=== PATIENT | male | born 1995 | race Caucasian/White ===

== ENCOUNTER 2017-06-05 21:59 | Emergency (ER) | payer MEDICAID ==
--- NOTE | 2017-06-06 00:30 | ED Physician Documentation ---
PD HPI MALE - Stated complaint Stated Complaint: MALE - Chief complaint Chief Complaint: General - History obtained from History obtained from: Patient - History of Present Illness Timing - onset: Today (this evening) Timing - duration: Hours Timing - details: Abrupt onset, Waxing and waning Pain level now: 9 Associated symptoms: Testiclar pain, Scrotal swelling. No: Dysuria, Urinary frequency, Hematuria, Discharge Similar symptoms before: Diagnosis (hydrocele) - Additional information Additional information: c/o episodic left testicular pain since February 2017. he was evaluated for this problem in this ED at that time, US showed hydrocele, but he was also treated with antibiotics to cover possible epidydimitis. He says he has episodes of left testicular pain since that time but tonight it became more severe than previous episodes. He has not had f/u for this problem, although he has an appointment with PMD (on [facility]) in early June. Review of Systems Constitutional: denies: Fever, Chills, Sweats GI: denies: Abdominal Pain : reports: Testicular pain. denies: Dysuria, Frequency, Discharge PD PAST MEDICAL HISTORY - Past Medical History Past Medical History: Yes GI: None : Other (hydrocele) - Past Surgical History Past Surgical History: No - Present Medications Home Medications: Ambulatory Orders Medication Instructions Recorded Confirmed oxyCODONE/ACET 5/325 [Percocet 5 1 - 2 each PO Q6H PRN #15 tablet 06/06/ mg/325 mg] - Allergies Allergies/Adverse Reactions: Allergies Allergy/AdvReac Type Severity Reaction Status Date / Time No Known Drug Allergies Allergy Verified 06/05/17 22:05 - Living Situation Living Arrangement: reports: At home - Social History Does the pt smoke?: Yes Smoking Status: Current every day smoker Does the pt drink ETOH?: No - Immunizations Immunizations are current?: Yes - POLST Patient has POLST: No PD ED PE NORMAL - Vitals Vital signs reviewed: Yes - General General: Alert and oriented X 3, Well developed/nourished, Other (appears uncomfortable) - Abdomen Abdomen: Soft, Non tender - Back Back: No CVA TTP PD ED PE EXPANDED - Male Male : Testes descended watson, Normal lie/cremastaric, Tenderness (mild left testicular tenderness, but he is most tender in scrotum that is above (cranial to) the left testicle without being adjacent; there is also mild focal swelling of this area) Results - Vitals Vitals: Vital Signs - 24 hr 06/05/17 06/06/17 22:03 03:25 Temperature 36.6 C 37.2 C Heart Rate 88 65 Respiratory 18 20 Rate Blood Pressure 120/62 111/69 O2 Saturation 100 97 Oxygen O2 Source Room air - Rads (name of study) testicular US Radiology: Prelim report reviewed, See rad report PD MEDICAL DECISION MAKING - ED course Complexity details: reviewed old records, reviewed results, re-evaluated patient , considered differential, d/w patient ED course: US reveals bilateral hydrocele (small) and small left varicocele. The majority of his swelling and tenderness is in an area that would correlate with the location of the left varicocele. I do not suspect epidydimitis at this time and thus no antibiotics given nor prescribed. Departure - Departure Disposition: 01 Home, Self Care Clinical Impression: Varicocele present on ultrasound of scrotum, Hydrocele Condition: Good Instructions: ED Hydrocele Type Not Specified, ED Varicocele Prescriptions: oxyCODONE/ACET 5/325 [Percocet 5 mg/325 mg] 1 - 2 each PO Q6H PRN #15 tablet PRN Reason: Pain Comments: Follow up with your doctor as scheduled. Discharge Date/Time: 06/06/17 03:53
[2017-06-06] MEDS ORDERED: oxyCOD/ACETAMIN 5 MG/325 MG TABLET PO STA (01:05)
--- NOTE | 2017-06-06 02:17 | Ultrasound Preliminary Report ---
Exam: US TESTICLE W/DOPPLER IMPRESSION: 1. Testicles appear normal. 2. Small hydroceles. 3. Small left varicocele. [facility] SITE ID: [id number]
--- NOTE | 2017-06-06 02:20 | Ultrasound Report ---
EXAM: SCROTAL ULTRASOUND EXAM DATE: 06/06/2017 02:00 AM. CLINICAL HISTORY: Left testicular pain. COMPARISON: 03/08/2017. TECHNIQUE: Real-time scanning was performed with static images obtained. Both color-flow and Doppler spectral analysis were utilized. FINDINGS: Right: Testis: 4.2 x 2.7 x 3.3 cm. Normal size and echotexture. No mass, calcification, or abnormal blood fl ow. Epididymis: Normal size and echotexture. No solid-appearing mass or abnormal blood flow. Hydrocele: Small. Varicocele: None. Left: Testis: 4.1 x 2.3 x 2.7 cm. Normal size and echotexture. No mass, calcification, or abnormal blood fl ow. Epididymis: Normal size and echotexture. No solid-appearing mass or abnormal blood flow. Hydrocele: Small. Varicocele: Yes. Other: None. IMPRESSION: 1. Testicles appear normal. 2. Small hydroceles. 3. Small left varicocele. [facility] Referring Provider Line: [phone] SITE ID: [id number]
[2017-06-06 03:25] VITALS: BP 111/69
[2017-06-06] MEDS ORDERED: oxyCODONE 5 MG TABLET PO STA (03:46)
[2017-06-06] MEDS ORDERED: IBUPROFEN 600 MG TABLET PO STA (03:46)
== END 2017-06-06 03:53 | disposition home or self-care (01) ==
LOC: ED 21:59
DX: I86.1 Scrotal varices (principal); N43.3 Hydrocele, unspecified; F17.200 Nicotine dependence, unspecified, uncomplicated
CPT/HCPCS: 76870; 93975; 99283; A9270

== ENCOUNTER 2017-06-13 01:52 | Emergency (ER) | payer MEDICAID ==
[2017-06-13] MEDS ORDERED: KETOROLAC 60 MG/2 ML VIAL IM STA (01:58)
--- NOTE | 2017-06-13 02:27 | ED Physician Documentation ---
PD HPI MALE - Stated complaint Stated Complaint: MALE - Chief complaint Chief Complaint: Abd Pain - History obtained from History obtained from: Patient, Family - History of Present Illness Timing - onset: How many weeks ago (1) Timing - details: Gradual onset, Still present Associated symptoms: Testiclar pain, Scrotal swelling PD HPI MALE CONTRIB FACTORS: Sexually active Similar symptoms before: Work up / diagnostics Recently seen: Emergency Dept - Additional information Additional information: Patient is a 22 year old male who was recently diagnosed with hydro and varicocele who is presenting to the emergency department for pain in his scrotom. Patient denies fever, chills or any new trauma. Patient has not been able to follow up with a doctor since his last visit to the emergency department. Review of Systems Eyes: reports: Reviewed and negative Ears: reports: Reviewed and negative Nose: reports: Reviewed and negative Throat: reports: Reviewed and negative Cardiac: reports: Reviewed and negative Respiratory: reports: Reviewed and negative GI: denies: Abdominal Pain, Nausea, Vomiting, Constipation, Diarrhea : reports: Testicular pain, Testicular mass. denies: Dysuria, Frequency Skin: denies: Rash, Lesions, Abrasion (s) Musculoskeletal: reports: Reviewed and negative Neurologic: reports: Reviewed and negative Immunocompromised: denies: Immunocompromised PD PAST MEDICAL HISTORY - Past Medical History Past Medical History: Yes GI: None : Other Other Past Medical History: DX several wks ago w/ testicular Hydrocele & varicocele - Past Surgical History Past Surgical History: No - Present Medications Home Medications: Ambulatory Orders Medication Instructions Recorded Confirmed oxyCODONE/ACET 5/325 [Percocet 5 1 - 2 each PO Q6H PRN #15 tablet 06/06/ mg/325 mg] - Allergies Allergies/Adverse Reactions: Allergies Allergy/AdvReac Type Severity Reaction Status Date / Time No Known Drug Allergies Allergy Verified 06/13/17 02:00 - Social History Does the pt smoke?: Yes Smoking Status: Current every day smoker Does the pt drink ETOH?: No - Immunizations Immunizations are current?: Yes - POLST Patient has POLST: No PD ED PE NORMAL - Vitals Vital signs reviewed: Yes - General General: Alert and oriented X 3, No acute distress - HEENT HEENT: Atraumatic, PERRL, Moist mucous membranes - Cardiac Cardiac: RRR - Respiratory Respiratory: No respiratory distress - Abdomen Abdomen: Soft, Non distended - Derm Derm: Normal color, Warm and dry, No rash - Extremities Extremities: No deformity - Neuro Neuro: Alert and oriented X 3, No motor deficit, No sensory deficit, Normal speech PD ED PE EXPANDED - Male Male : Testes descended watson, Tenderness (mild tenderness to palpation and small varicocele appreciated ). No: Skin lesions, Discharge, Testicular Mass Results - Vitals Vitals: Vital Signs - 24 hr 06/13/17 06/13/17 01:55 03:32 Temperature 36.2 C L 36.3 C L Heart Rate 84 77 Respiratory 16 21 Rate Blood Pressure 128/86 H 131/73 H O2 Saturation 99 99 Oxygen O2 Source Room air - Labs Labs: Laboratory Tests 06/13/17 02:53 Urine Color YELLOW Urine Clarity CLEAR Urine pH 6.0 Ur Specific [place] <=1.005 Urine Protein NEGATIVE Urine Glucose (UA) NEGATIVE Urine Ketones NEGATIVE Urine Occult Blood NEGATIVE Urine Nitrite NEGATIVE Urine Bilirubin NEGATIVE Urine Urobilinogen 0.2 (NORMAL) Ur Leukocyte Esterase NEGATIVE Ur Microscopic Review NOT INDICATED Urine Culture Comments NOT INDICATED - Rads (name of study) testicular ultrasound Radiology: Final report received (unchanged from previous, small varicocele and hydrocele) PD MEDICAL DECISION MAKING - ED course Complexity details: reviewed old records, reviewed results, re-evaluated patient , considered differential, d/w patient, d/w family ED course: Patient was seen and examined at bedside. patient was well appearing and in no acute distress. Ultrasound was performed. Patient was treated with toradol and tylenol. Patient's diagnostics were unchanged. Patient required no further diagnostics or testing at this time. patient was stable for discharge with outpatient follow up. Departure - Departure Disposition: Home, Self Care Clinical Impression: Varicocele present on ultrasound of scrotum, Hydrocele Condition: Good Instructions: ED Varicocele Follow-Up: [facility] [Provider Group] - Within 1 week Comments: Your diagnostics today were unchanged from last time. Your symptoms are being caused by varicocele and hydrocele. You are going to have to wear supportive underwear or jock strap. You can take motrin or tylenol as needed for pain. You should follow up with your doctor, but ultimately you can follow up with [facility]. You can call at the number listed above. Discharge Date/Time: 06/13/17 03:37
[2017-06-13] MEDS ORDERED: ACETAMINOPHEN 500 MG TABLET PO STA (02:59)
[2017-06-13 03:07] LABS: BILIRUBIN,URINE NEGATIVE (NEGATIVE); GLUCOSE, URINE (UA) NEGATIVE (NEGATIVE); KETONES,URINE (UA) NEGATIVE (NEGATIVE); LEUKOCYTE ESTERASE, URINE NEGATIVE (NEGATIVE); NITRITE,URINE NEGATIVE (NEGATIVE); OCCULT BLOOD,URINE NEGATIVE (NEGATIVE); PROTEIN,URINE NEGATIVE (NEGATIVE); UROBILINOGEN,URINE 0.2 (NORMAL) E.U./dL (NORMAL)
[2017-06-13 03:08] LABS: CLARITY,URINE CLEAR (CLEAR)
--- NOTE | 2017-06-13 03:17 | Ultrasound Report ---
EXAM: SCROTAL ULTRASOUND EXAM DATE: 06/13/2017 02:51 AM. CLINICAL HISTORY: Testicular pain and swelling. COMPARISON: 06/06/2017. TECHNIQUE: Real-time scanning was performed with static images obtained. Both color-flow and Doppler spectral analysis were utilized. FINDINGS: Right: Testis: 4.1 x 2.7 x 2.3 cm. Normal size and echotexture. No mass, calcification, or abnormal blood fl ow. Epididymis: 1.2 cm. Normal size and echotexture. No mass or abnormal blood flow. Hydrocele: Small Varicocele: None. Left: Testis: 3.9 x 2.2 x 2.5 cm. Normal size and echotexture. No mass, calcification, or abnormal blood fl ow. Epididymis: 1.1 cm. Normal size and echotexture. No mass or abnormal blood flow. Hydrocele: Small Varicocele: Present IMPRESSION: 1. No significant change from the prior. No significant testicular abnormalities. 2. There are trace bilateral hydroceles. 3. Left-sided varicosities are seen. JAKA Referring Provider Line: [phone] SITE ID: [id number]
--- NOTE | 2017-06-13 03:17 | Ultrasound Preliminary Report ---
Exam: US TESTICLE W/DOPPLER IMPRESSION: 1. No significant change from the prior. No significant testicular abnormalities. 2. There are trace bilateral hydroceles. 3. Left-sided varicosities are seen. [facility] SITE ID: [id number]
[2017-06-13 03:35] VITALS: BP 131/73
== END 2017-06-13 03:37 | disposition home or self-care (01) ==
LOC: ED 01:52
DX: I86.1 Scrotal varices (principal); N43.3 Hydrocele, unspecified; F17.200 Nicotine dependence, unspecified, uncomplicated
CPT/HCPCS: 76870; 81003; 87491; 87591; 93975; 96372; 99283; A9270; 81001; 87086

== ENCOUNTER 2017-06-17 10:50 | Outpatient (CLI) | payer MEDICAID ==
[2017-06-17 22:30] LABS: BILIRUBIN,URINE NEGATIVE (NEGATIVE); GLUCOSE, URINE (UA) NEGATIVE (NEGATIVE); KETONES,URINE (UA) NEGATIVE (NEGATIVE); LEUKOCYTE ESTERASE, URINE SMALL (NEGATIVE); NITRITE,URINE NEGATIVE (NEGATIVE); OCCULT BLOOD,URINE NEGATIVE (NEGATIVE); PROTEIN,URINE NEGATIVE (NEGATIVE); UROBILINOGEN,URINE 0.2 (NORMAL) E.U./dL (NORMAL)
[2017-06-17 22:52] LABS: CLARITY,URINE CLEAR (CLEAR); RBC,URINE 0-5 /HPF (0-5); SQUAMOUS EPITHELIAL CELL,UR NONE SEEN (<= Few); WBC CLUMPS,URINE PRESENT
[2017-06-17 22:53] LABS: BACTERIA,URINE Rare /HPF (None Seen)
== END 2017-06-17 10:51 | disposition home or self-care (01) ==
LOC: LAB.R 10:50
PROVIDERS: ATTEND Physician Assistant Medical
DX: N50.812 Left testicular pain (principal); N43.3 Hydrocele, unspecified; I86.1 Scrotal varices
CPT/HCPCS: 81001; 87086

== ENCOUNTER 2017-08-01 14:30 | Emergency (ER) | payer MEDICAID ==
[2017-08-01] MEDS ORDERED: IBUPROFEN 800 MG TABLET PO STA (14:37)
--- NOTE | 2017-08-01 14:39 | ED Physician Documentation ---
PD HPI LOWER EXT INJURY - Stated complaint Stated Complaint: RT ANKLE INJ - History obtained from History obtained from: Patient - History of Present Illness PD HPI LOW EXT INJURY LOCATION: Right, Ankle Type of injury: Twist Where injury occurred: Home Timing - onset: Last night Worsened by: Moving, Palpating, Other (Weight bearing.) Associated symptoms: Swelling. No: Weakness, Numbness Similar symptoms before: Has not had sx before - Additional information Additional information: The patient is a 22-year-old male who presents with right ankle pain. He twisted his right ankle last night when he jumped through a window. He denies any other injuries except for mild scratches on his hands. He has been ambulating, but experiences pain with weightbearing. Review of Systems Constitutional: denies: Fever Respiratory: denies: Dyspnea GI: denies: Nausea, Vomiting Skin: reports: Abrasion (s) Musculoskeletal: reports: Joint pain (Right ankle.). denies: Neck pain, Back pain Neurologic: denies: Focal weakness, Numbness, Headache, Head injury PD PAST MEDICAL HISTORY - Past Medical History Respiratory: None Neuro: None Endocrine/Autoimmune: None GI: None : Other - Past Surgical History Past Surgical History: No - Present Medications Home Medications: Ambulatory Orders Medication Instructions Recorded Confirmed No Known Home Medications [No 08/01/17 08/01/17 Known Home Medications] - Allergies Allergies/Adverse Reactions: Allergies Allergy/AdvReac Type Severity Reaction Status Date / Time No Known Drug Allergies Allergy Verified 08/01/17 14:45 - Social History Does the pt smoke?: Yes Smoking Status: Current every day smoker Does the pt drink ETOH?: No - Immunizations Immunizations are current?: Yes - POLST Patient has POLST: No PD ED PE NORMAL - Vitals Vital signs reviewed: Yes - General General: Alert and oriented X 3, Well developed/nourished - HEENT HEENT: Atraumatic - Respiratory Respiratory: No respiratory distress - Derm Derm: No rash - Extremities Extremities: Other (There is tenderness to palpation over the posterior aspect of the right lateral malleolus. There is no tenderness medially, at the fifth metatarsal base, or at the proximal fibula. Distal neurovascular is intact. Examination of his hands reveals few scattered superficial abrasions.) - Neuro Neuro: Alert and oriented X 3, No motor deficit, No sensory deficit Results - Vitals Vitals: Vital Signs - 24 hr 08/01/17 14:37 Temperature 36.5 C Heart Rate 107 H Respiratory 20 Rate Blood Pressure 135/82 H O2 Saturation 97 Oxygen O2 Source Room air - Rads (name of study) right ankle Radiology: Prelim report reviewed, EMP read contemporaneously, See rad report ( Tiny avulsion fracture off of the lateral aspect of the talus. Otherwise unremarkable.) Procedures - Splint (location) Right ankle Splint applied by: Nurse Type of splint: Ankle airsplint Other: Patient tolerated well, No complications, Neurovascular intact, Crutches provided PD MEDICAL DECISION MAKING - ED course Complexity details: reviewed results, re-evaluated patient, considered differential, d/w patient, d/w family ED course: The patient's presentation is most consistent with avulsion fracture from the lateral aspect of the right talus. This is visualized on x-ray examination of the ankle, and is consistent with his physical examination. Treatment in the emergency department included administration of ibuprofen 800 mg orally, and application of an ankle air splint. Crutches were dispensed. 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 Departure - Departure Disposition: 01 Home, Self Care Clinical Impression: Avulsion fracture of ankle Qualifiers: Encounter type: initial encounter Fracture type: closed Laterality: right Qualified Code(s): S82.891A - Other fracture of right lower leg, initial encounter for closed fracture Condition: Stable Instructions: ED Fx Ankle Lateral Malleolus Comments: Keep your right ankle elevated as much of the time as possible. Apply ice pack intermittently for the first 3 or 4 days. Use the air splint for comfort. You can use crutches when walking to avoid weightbearing. You can use ibuprofen, up to 800 mg 3 times daily for its anti-inflammatory effect. Follow up with your primary physician within 2 weeks. Call to schedule appointment. Return to the emergency department if you develop increasing pain or swelling, or otherwise worsening symptoms. Discharge Date/Time: 08/01/17 15:34
[2017-08-01 14:41] VITALS: BP 135/82
--- NOTE | 2017-08-01 15:04 | XRAY Preliminary Report ---
Exam: XR ANKLE 3 VIEW RT IMPRESSION: Tiny avulsion fracture off of the lateral aspect of the talus. Otherwise unremarkable. [facility] SITE ID: [id number]
--- NOTE | 2017-08-01 15:04 | XRAY Report ---
EXAM: RIGHT ANKLE RADIOGRAPHY EXAM DATE: 08/01/2017 02:49 PM. CLINICAL HISTORY: Right ankle injury. COMPARISON: None. TECHNIQUE: 3 views. FINDINGS: There is a tiny bony fragment extending off of the lateral aspect of the talus adjacent to the latera l malleolus and this is likely a tiny avulsion fracture. Minimal adjacent soft tissue swelling noted. Bony structure is otherwise unremarkable. Ankle mortise is symmetric. IMPRESSION: Tiny avulsion fracture off of the lateral aspect of the talus. Otherwise unremarkable. [facility] Referring Provider Line: [phone] SITE ID: [id number]
== END 2017-08-01 15:34 | disposition home or self-care (01) ==
LOC: ED 14:30
DX: S92.151A Displaced avulsion fracture (chip fracture) of right talus, initial encounter for closed fracture (principal); S60.512A Abrasion of left hand, initial encounter; S60.511A Abrasion of right hand, initial encounter; X50.1XXA Overexertion from prolonged static or awkward postures, initial encounter; Y93.39 Activity, other involving climbing, rappelling and jumping off; F17.200 Nicotine dependence, unspecified, uncomplicated
CPT/HCPCS: 73610; 99283; A9270

== ENCOUNTER 2017-12-25 14:12 | Outpatient (CLI) | payer MEDICAID, OTHER | END 2017-12-25 14:13 | disposition critical access hospital (66) | LOC: EMS 14:12 | PROVIDERS: ATTEND Surgery | DX: S06.9X1A Unspecified intracranial injury with loss of consciousness of 30 minutes or less, initial encounter (principal); R07.81 Pleurodynia; R42 Dizziness and giddiness; M54.2 Cervicalgia; Y08.02XA Assault by strike by baseball bat, initial encounter; Y92.009 Unspecified place in unspecified non-institutional (private) residence as the place of occurrence of the external cause | CPT/HCPCS: A0425; A0429; A0999 ==

== ENCOUNTER 2017-12-25 14:24 | Emergency (ER) | payer MEDICAID ==
[2017-12-25] MEDS ORDERED: LIDOCAINE 2%-EPI 1:100000 20 ML MDV SUBQ STA (14:37)
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
[2017-12-25] MEDS ORDERED: BACITRACIN OINT TOP STA (15:29)
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
[2017-12-25] MEDS ORDERED: IBUPROFEN 800 MG TABLET PO STA (15:33)
[2017-12-25 16:01] VITALS: BP 128/80
== END 2017-12-25 16:00 | disposition home or self-care (01) ==
LOC: ED 14:24
DX: S01.81XA Laceration without foreign body of other part of head, initial encounter (principal); S20.212A Contusion of left front wall of thorax, initial encounter; S40.022A Contusion of left upper arm, initial encounter; S29.8XXA Other specified injuries of thorax, initial encounter; Y08.02XA Assault by strike by baseball bat, initial encounter; F17.200 Nicotine dependence, unspecified, uncomplicated
CPT/HCPCS: 12011; 70450; 71046; 72125; 99283; A9270

== ENCOUNTER 2017-12-25 20:55 | Outpatient (CLI) | payer MEDICAID ==
--- NOTE | 2017-12-25 21:19 | XRAY Report ---
Procedure Date: 12/25/2017 Accession Number: [id number] / [id number] Procedure: XR - Chest 2 View X-Ray CPT Code: 00211 FULL RESULT: EXAM: CHEST RADIOGRAPHY EXAM DATE: 12/25/2017 09:04 PM. CLINICAL HISTORY: Left rib injury, trauma. Pain. COMPARISON: X-ray chest PA and lateral 03/29/2011. TECHNIQUE: 2 views. FINDINGS: Lungs/Pleura: No focal opacities evident. No pleural effusion. No pneumothorax. Normal volumes. Mediastinum: Heart and mediastinal contours are unremarkable. Other: A marker was placed in the area of concern this corresponds to the lateral aspects of the left eighth and ninth ribs. No acute bony abnormality. IMPRESSION: Normal 2-view chest radiography. [facility]
== END 2017-12-25 20:56 | disposition home or self-care (01) ==
LOC: DI 20:55
PROVIDERS: ATTEND Emergency Medicine
DX: S29.8XXA Other specified injuries of thorax, initial encounter (principal)
CPT/HCPCS: 71046